=== PATIENT | male | born 1955 | race Caucasian/White ===

== ENCOUNTER 2016-09-30 11:35 | Observation (INO) | payer OTHER ==
[~2016-09-30] VITALS: Ht 185.4 cm; Wt 115.0 kg
[2016-09-30] VITALS (7 sets, daily range): BP systolic 124–188; BP diastolic 66–100; PULSE 68–80; RESP 18–20; TEMP 97.6–97.8; O2SAT 93–99
--- NOTE | 2016-09-30 11:41 | PD ---
Physical Exam Date Seen by Provider: Sep 30, 2016 Time Seen by Provider: 11:40 Narrative 60 yo male here for evaluation of chest pressure. Started today. Nothing makes it better. Took two aspirin and takes pradaxa. history of ACS. Most of the pain is like pressure on the mid chest and headache as well. 8/10. No nitro. Vitals are stable in triage. Awaiting bed placement. Data Data Last Documented VS Vital Signs Date Time Temp Pulse Resp B/P Pulse Ox O2 Delivery O2 Flow Rate FiO2 09/30/16 11:36 97.6 80 20 188/100 98 Room Air [facility] Medical Record Reviewed: Yes Supervised Visit with KHLOE: Wil Wheatley Sep 30, 2016 11:41
--- NOTE | 2016-09-30 12:07 | RADRPT ---
EXAM DATE/TIME: 09/30/2016 11:47 [place] COMPARISON: No previous studies available for comparison. INDICATIONS : Chest pain, short of breath. MEDICAL HISTORY : Chronic obstructive pulmonary disease. SURGICAL HISTORY : None. ENCOUNTER: Initial ACUITY: 1 day PAIN SCORE: 4/10 LOCATION: Bilateral chest FINDINGS: A single view of the chest demonstrates the lungs to be symmetrically aerated without evidence of mas s, infiltrate or effusion. The cardiomediastinal contours are unremarkable. Osseous structures are intact. CONCLUSION: No acute disease. Odell Quiroz MD on September 30, 2016 at 12:05 Board Certified Radiologist. This report was verified electronically.
--- NOTE | 2016-09-30 12:21 | PD ---
HPI Chief Complaint: Chest Pain Time Seen by Provider: 11:46 Travel History International Travel<30 days: No Contact w/Intl Traveler<30days: No Traveled to known affect area: No History of Present Illness HPI Patient 60-year-old male presents to the emergency Department with left-sided chest pressure radiating to his left shoulder and up to his neck. Patient states he's been under a lot of stress recently secondary to the of his mother. He states that he got into an argument with somebody at work today when this pressure started. This happened about 7:00 this morning. He does follow with a low pressure boiler operator Dr. Tinsley out [facility], states that he had a stress test some months ago. States that this pain was quite intense associated with some shortness of breath and some mild nausea. He states it is lessening significantly since being in the emergency department. He took 2 full dose aspirins prior to arrival, has not had a nitroglycerin. He is accompanied by his who is a nurse. PFSH Past Medical History Narrative Medical Anxiety, CAD, COPD, hypercholesterolemia. Cardiovascular Problems: Yes Past Surgical History Narrative Surgical Left hand surgery Social History Alcohol Use: No Tobacco Use: Yes Allergies-Medications (Allergen,Severity, Reaction): Coded Allergies: Codeine (Verified Allergy, Intermediate, headache, 09/30/16) Reported Meds & Prescriptions Reported Meds & Active Scripts Active Reported Aspirin EC (Aspirin) 81 Mg Tabdr 81 Mg PO DAILY Ranexa ER 12 HR (Ranolazine) 500 Mg Tab 250 Mg PO BID Atorvastatin (Atorvastatin Calcium) 20 Mg Tab 20 Mg PO HS Review of Systems Except as stated in HPI: all other systems reviewed are Neg Physical Exam Narrative GENERAL: Well-developed well-nourished, mildly uncomfortable but in no distress per SKIN: Focused skin assessment warm/dry. HEAD: Atraumatic. Normocephalic. EYES: Pupils equal and round. No scleral icterus. No injection or drainage. ENT: No nasal bleeding or discharge. Mucous membranes pink and moist. NECK: Trachea midline. No JVD. CARDIOVASCULAR: Regular rate and rhythm. No murmur appreciated. 2+ bilaterally equal pulses in all 4 extremity's. RESPIRATORY: No accessory muscle use. Clear to auscultation. Breath sounds equal bilaterally. GASTROINTESTINAL: Abdomen soft, non-tender, nondistended. Hepatic and splenic margins not palpable. MUSCULOSKELETAL: No obvious deformities. No clubbing. No cyanosis. No edema. NEUROLOGICAL: Awake and alert. No obvious cranial nerve deficits. Motor grossly within normal limits. Normal speech. PSYCHIATRIC: Appropriate mood and affect; insight and judgment normal. Data Data Last Documented VS Vital Signs Date Time Temp Pulse Resp B/P Pulse Ox O2 Delivery O2 Flow Rate FiO2 09/30/16 12:35 84 20 98 Room Air 09/30/16 12:35 137/73 09/30/16 11:36 97.6 Orders Electrocardiogram (09/30/16 11:46) Ckmb (Isoenzyme) Profile (09/30/16 11:46) Complete Blood Count With Diff (09/30/16 11:46) Comprehensive Metabolic Panel (09/30/16 11:46) Magnesium (Mg) (09/30/16 11:46) Prothrombin Time / Inr (Pt) (09/30/16 11:46) Act Partial Throm Time (Ptt) (09/30/16 11:46) Troponin I (09/30/16 11:46) Chest, Single Ap (09/30/16 11:46) Ecg Monitoring (09/30/16 11:46) Iv Access Insert/Monitor (09/30/16 11:46) Oximetry (09/30/16 11:46) Oxygen Administration (09/30/16 11:46) CKMB (09/30/16 12:58) CKMB% (09/30/16 12:58) Admit Order (Ed Use Only) (09/30/16 ) Labs Laboratory Tests Test 09/30/16 12:58 White Blood Count 7.2 TH/MM3 Red Blood Count 4.59 MIL/MM3 Hemoglobin 13.9 GM/DL Hematocrit 41.5 % Mean Corpuscular Volume 90.4 FL Mean Corpuscular Hemoglobin 30.2 PG Mean Corpuscular Hemoglobin 33.4 % Concent Red Cell Distribution Width 12.4 % Platelet Count 190 TH/MM3 Mean Platelet Volume 8.2 FL Neutrophils (%) (Auto) 60.0 % Lymphocytes (%) (Auto) 30.0 % Monocytes (%) (Auto) 7.5 % Eosinophils (%) (Auto) 2.0 % Basophils (%) (Auto) 0.5 % Neutrophils # (Auto) 4.3 TH/MM3 Lymphocytes # (Auto) 2.2 TH/MM3 Monocytes # (Auto) 0.5 TH/MM3 Eosinophils # (Auto) 0.1 TH/MM3 Basophils # (Auto) 0.0 TH/MM3 CBC Comment DIFF FINAL Differential Comment Prothrombin Time 10.4 SEC Prothromb Time International 0.9 RATIO Ratio Activated Partial 29.6 SEC Thromboplast Time Sodium Level 140 MEQ/L Potassium Level 4.8 MEQ/L Chloride Level 107 MEQ/L Carbon Dioxide Level 27.1 MEQ/L Anion Gap 6 MEQ/L Blood Urea Nitrogen 10 MG/DL Creatinine 0.91 MG/DL Estimat Glomerular Filtration 84 ML/MIN Rate Random Glucose 105 MG/DL Calcium Level 9.2 MG/DL Magnesium Level 2.3 MG/DL Total Bilirubin 0.5 MG/DL Aspartate Amino Transf 26 U/L (AST/SGOT) Alanine Aminotransferase 33 U/L (ALT/SGPT) Alkaline Phosphatase 70 U/L Total Creatine Kinase 112 U/L Creatine Kinase MB 1.3 NG/ML Troponin I LESS THAN 0.02 NG/ML Total Protein 7.5 GM/DL Albumin 3.6 GM/DL MDM Medical Decision Making Medical Screen Exam Complete: Yes Emergency Medical Condition: Yes Differential Diagnosis ACS, AMI, pneumonia, stress, anxiety. Narrative Course Patient roomed emergency department, has a fair description of anginal equivalent with heaviness some mild nausea and shortness of breath. It is relieving with rest. He has had aspirin prior to arrival. Initial workup including EKG and chest x-ray are fairly reassuring however the patient does have a history of right bundle branch block which his confirms. Discussed with the patient follow-up with his low pressure boiler operator versus chest pain center, he states that his next appointment with his low pressure boiler operator is until late November, I have therefore recommended that he stay and chest pain center for troponin trending at a minimum and consideration of stress testing and he is agreeable. Diagnosis Primary Impression: Chest pain Qualified Code: R07.9 - Chest pain, unspecified type Admitting Information Admitting Physician Requests: Observation Condition: Stable Odell Rasmussen MD Sep 30, 2016 12:21 Odell Rasmussen MD Sep 30, 2016 12:21
[2016-09-30] MEDS ORDERED: ATOR20TA15 PO (13:05)
[2016-09-30 13:18] LABS: ALT (GPT) 33 U/L (12-78); ANION GAP 6 MEQ/L (5-15); AST (GOT) 26 U/L (15-37); BICARBONATE 27.1 MEQ/L (21.0-32.0); BLOOD UREA NITROGEN 10 MG/DL (7-18); CHLORIDE 107 MEQ/L (98-107); GLOMERULAR FILTRATION RATE 84 ML/MIN (>89); MAGNESIUM 2.3 MG/DL (1.5-2.5); SODIUM (NA) 140 MEQ/L (136-145)
[2016-09-30 13:20] LABS: POTASSIUM 4.8 MEQ/L (3.5-5.1)
[2016-09-30 13:21] LABS: ALKALINE PHOSPHATASE 70 U/L (45-117); CREATINE KINASE 112 U/L (39-308); TOTAL BILIRUBIN ADULT 0.5 MG/DL (0.2-1.0)
[2016-09-30 13:24] LABS: AUTOMATED NEUTROPHIL # 4.3 TH/MM3 (1.8-7.7); BASOPHIL % 0.5 % (0.0-2.0); EOSINOPHIL # 0.1 TH/MM3 (0-0.4); HEMATOCRIT 41.5 % (39.0-51.0); HEMO FLAGS DIFF FINAL; LYMPHOCYTE # 2.2 TH/MM3 (1.0-4.8); MEAN CELL VOLUME 90.4 FL (80.0-100.0); MEAN CORPUSCULAR HEMOGLOBIN 30.2 PG (27.0-34.0); MEAN CORPUSCULAR HGB CONC 33.4 % (32.0-36.0); MONO % 7.5 % (0.0-8.0); PLATELET COUNT 190 TH/MM3 (150-450); RED BLOOD COUNT 4.59 MIL/MM3 (4.50-5.90); RED CELL DISTRIBUTION WIDTH 12.4 % (11.6-17.2); WHITE BLOOD COUNT 7.2 TH/MM3 (4.0-11.0)
[2016-09-30 13:33] LABS: APTT (PATIENT) 29.6 SEC (24.3-30.1); INTERNATIONAL NORMALIZED RATIO 0.9 RATIO; PROTHROMBIN TIME - PATIENT 10.4 SEC (9.8-11.6)
[2016-09-30 13:34] LABS: CKMB 1.3 NG/ML (0.5-3.6)
[2016-09-30] MEDS ORDERED: NITROGLYCERIN 2% OINT 1 GM PACKET TOPICAL ONE (14:00)
[2016-09-30] MEDS ORDERED: SODIUM CHLORIDE 0.9% FLUSH 5 ML FLUSH IVF PRN (15:00)
[2016-09-30] MEDS ORDERED: ACETAMINOPHEN 500 MG CPLT PO PRN (15:00)
[2016-09-30] MEDS ORDERED: ALPRAZolam 0.25 MG TAB PO PRN (15:00)
[2016-09-30] MEDS ORDERED: ONDANSETRON HCL 4 MG/2 ML VIAL IV PRN (15:00)
--- NOTE | 2016-09-30 15:01 | HHI.HP ---
[facility] Primary Care Physician Mamadou Christian MD Chief Complaint Chest pain History of Present Illness This is a 60-year-old male that presents to ED via private vehicle with his with complaint of developing a central chest pressure after waking this morning around 2:30. He states it was a small area in the center of his chest but continued to expand outward throughout the morning. The discomfort worsened to about 8 out of 10 while he was at the home making preparations for his mother's . He was short of breath nauseous and diaphoretic. He states that he was told by his senior medical transcriptionist Dr. Gandhi that he had a heart blockage via a chemical stress test. He had a stress test in May of this year. He states that he was placed on Ranexa. He also takes atorvastatin and a baby aspirin daily. He states he found nothing really to improve the symptoms but it was worsened when he is getting more stressed at [facility] with the plans of his mother's . Currently discomfort is about a 1 out of 10. It has never resolved. He has declined nitroglycerin sitting that it used to get them very bad headache. He also was on isosorbide in the past which also gave him a bad headache. He states he's never had a cardiac catheterization. Denies recent illnesses. Denies fevers or chills. Review of Systems General: Patient denies fevers, chills recent, and recent travel HEENT: Patient denies headache, sore throat, difficulty swallowing. Cardiovascular: Has the chest discomfort as mentioned above. Denies sensation of heart beating rapidly or irregularly. No syncope. He was diaphoretic. Respiratory: He was short of breath. He states shortness of breath is not unusual for him with his COPD but the breathing seemed to be more apical. Denies inspirational chest discomfort. Denies coughing wheezing or hemoptysis. GI: He was nauseous. Patient denies vomiting, diarrhea, abdominal pain, bloody stools. Musculoskeletal: Patient denies joint pain or edema. Denies calf pain or edema. Neurovascular: Patient denies numbness, tingling, weakness in extremities. Denies headache. Endocrine: Denies polyuria and polydipsia. Hematologic: Denies easy bruising. Skin: Denies rash or itching. Past Family Social History Allergies: Coded Allergies: Codeine (Verified Allergy, Intermediate, headache, 09/30/16) Past Medical History Stated history of CAD but states he's never had a cardiac catheterization. Patient also has history of hyperlipidemia and COPD. Denies hypertension and COPD. Past Surgical History Noncontributory. Denies prior cardiac catheterization. Reported Medications Reported Meds & Active Scripts Active Reported Atorvastatin (Atorvastatin Calcium) 20 Mg Tab 20 Mg PO HS Active Ordered Medications Current Medications Medications (Trade) Dose Ordered Sig/Lyubov Route Start Time Stop Time Status Last Admin (NS Flush) 2 ml UNSCH PRN IVF 09/30/16 15:00 UNV (NS Flush) 2 ml BID IVF 09/30/16 21:00 UNV (Tylenol) 500 mg Q4H PRN PO 09/30/16 15:00 UNV (Zofran Inj) 4 mg Q6H PRN IV 09/30/16 15:00 UNV (Protonix) 40 mg DAILY PO 09/30/16 15:00 UNV (Aspirin) 325 mg DAILY PO 10/01/16 09:00 UNV (Xanax) 0.25 mg Q8H PRN PO 09/30/16 15:00 UNV Family History He states that his mother had CAD and his sister has CAD. Social History Patient chews tobacco. Patient quit smoking cigarettes 3 years ago but prior that he smoked 1-2 packs of cigarettes daily for 35 years. Denies alcohol or illicit drugs. Physical Exam Vital Signs Vital Signs Date Time Temp Pulse Resp B/P Pulse Ox O2 Delivery O2 Flow Rate FiO2 09/30/16 12:35 84 20 98 Room Air 09/30/16 12:35 99 Room Air 09/30/16 12:35 78 18 137/73 99 Room Air 09/30/16 11:36 97.6 80 20 188/100 98 Room Air Physical Exam GENERAL: This is a well-nourished, well-developed patient, in no apparent distress. Patient speaks in clear complete sentences. Patient is pleasant. HEENT: Head is atraumatic and normocephalic. Neck is supple without lymphadenopathy and trachea is midline. No JVD or carotid bruits. CARDIOVASCULAR: Regular rate and rhythm without murmurs, gallops, or rubs. RESPIRATORY: Clear to auscultation. Breath sounds equal bilaterally. No wheezes , rales, or rhonchi. Chest wall is nontender. No use of accessory muscles. GASTROINTESTINAL: Abdomen is nontender, nondistended. Abdomen soft. No obvious pulsatile mass or bruit. No CVA tenderness. Strong femoral pulses bilaterally. Normal bowel sounds in all quadrants. MUSCULOSKELETAL: Patient is moving upper and lower extremities freely. No calf tenderness or edema, no Homans sign. Strong pulses in upper and lower extremities. NEUROLOGICAL: Patient is alert and oriented. Cranial nerves 2-12 are grossly intact. No focal deficits and speech is clear. SKIN: No rash and turgor is normal. Laboratory Laboratory Tests Test 09/30/16 12:58 White Blood Count 7.2 Red Blood Count 4.59 Hemoglobin 13.9 Hematocrit 41.5 Mean Corpuscular Volume 90.4 Mean Corpuscular Hemoglobin 30.2 Mean Corpuscular Hemoglobin 33.4 Concent Red Cell Distribution Width 12.4 Platelet Count 190 Mean Platelet Volume 8.2 Neutrophils (%) (Auto) 60.0 Lymphocytes (%) (Auto) 30.0 Monocytes (%) (Auto) 7.5 Eosinophils (%) (Auto) 2.0 Basophils (%) (Auto) 0.5 Neutrophils # (Auto) 4.3 Lymphocytes # (Auto) 2.2 Monocytes # (Auto) 0.5 Eosinophils # (Auto) 0.1 Basophils # (Auto) 0.0 CBC Comment DIFF FINAL Differential Comment Prothrombin Time 10.4 Prothromb Time International 0.9 Ratio Activated Partial 29.6 Thromboplast Time Sodium Level 140 Potassium Level 4.8 Chloride Level 107 Carbon Dioxide Level 27.1 Anion Gap 6 Blood Urea Nitrogen 10 Creatinine 0.91 Estimat Glomerular Filtration 84 Rate Random Glucose 105 Calcium Level 9.2 Magnesium Level 2.3 Total Bilirubin 0.5 Aspartate Amino Transf 26 (AST/SGOT) Alanine Aminotransferase 33 (ALT/SGPT) Alkaline Phosphatase 70 Total Creatine Kinase 112 Creatine Kinase MB 1.3 Troponin I LESS THAN 0.02 Total Protein 7.5 Albumin 3.6 Result Diagram: 09/30/16 1258 09/30/16 1258 Imaging Last 24 hours Impressions Chest X-Ray 09/30/16 1146 Signed Impressions: Service Date/Time: Friday, September 30, 2016 11:47 - CONCLUSION: No acute disease. Odell Quiroz MD Course EKGs: Initial EKG has a right bundle branch block without significant ST segment depressions or elevations. The patient's had told the ER physician that he has had a right bundle branch block. Assessment and Plan Assessment and Plan * Chest pain: Patient will continue to have serial cardiac enzymes and EKGs for ruling out purposes. He will be seen by Dr. Mynor Hicks of cardiology in the chest pain center. I discussed this patient with his senior medical transcriptionist Dr. Gandhi. He reviewed the records and states that he had a nonischemic chemical stress test May 15, 2016 and that was a low risk study. He states that in the past he has had stress test revealing microvascular disease and is being medically managed. He has requested that the patient have his Ranexa increased to 500 mg twice a day and to discharge him after he rules out with instructions to follow-up with him in his office. * Hyperlipidemia: Continue current medication. * COPD: Patient will have when necessary DuoNeb's. * Tobacco abuse: Patient has been counseled on importance of no longer using tobacco products. Patient is stable at this time. He is agreeable to this plan. Jackson Molina Sep 30, 2016 15:01
[2016-09-30] MEDS ORDERED: ASPI81TA11 PO (15:09)
[2016-09-30] MEDS ORDERED: RANO500 PO (15:09)
[2016-09-30] MEDS ORDERED: MORPHINE SULFATE 4 MG/ML INJ IV PUSH PRN (15:15)
[2016-09-30] MEDS: PANTOPRAZOLE SOD 40 MG DELAYED RELEASE TAB PO SCH (15:27)
[2016-09-30 17:12] LABS: CREATINE KINASE 67 U/L (39-308)
[2016-09-30 19:34] LABS: CREATINE KINASE 72 U/L (39-308)
[2016-09-30] MEDS: SODIUM CHLORIDE 0.9% FLUSH 5 ML FLUSH IVF SCH (21:00)
[2016-09-30] MEDS ORDERED: ATORVASTATIN 20 MG TAB PO SCH (21:00)
[2016-09-30] MEDS: RANOLAZINE 500 MG EXTENDED RELEASE TAB PO SCH (21:05)
[2016-10-01] VITALS: BP 109/64; PULSE 70; RESP 20; TEMP 97.7; O2SAT 96
[2016-10-01 00:05] VITALS: PULSE 64
[2016-10-01 04:00] VITALS: BP 116/70; PULSE 70; RESP 20; TEMP 97.6; O2SAT 96
[2016-10-01 04:15] VITALS: PULSE 65
[2016-10-01] MEDS ORDERED: RANO500 PO (07:23)
--- NOTE | 2016-10-01 07:23 | HHI.DCPOC ---
Discharge Care Plan Diagnosis: (1) Atypical chest pain (2) Hx of coronary artery disease (3) Tobacco abuse Goals to Promote Your Health * To prevent worsening of your condition and complications * To maintain your health at the optimal level Directions to Meet Your Goals Take your medications as prescribed Follow your dietary instruction Follow activity as directed Keep your appointments as scheduled Take your immunizations and boosters as scheduled If your symptoms worsen call your PCP, if no PCP go to Urgent Care Center or Emergency Room Smoking is Dangerous to Your Health. Avoid second hand smoke Call the 24-hour hour crisis hotline for domestic abuse at Leatha Cramer Oct 01, 2016 07:23
[2016-10-01] MEDS: RANOLAZINE 500 MG EXTENDED RELEASE TAB PO SCH (07:39)
[2016-10-01] MEDS: PANTOPRAZOLE SOD 40 MG DELAYED RELEASE TAB PO SCH (07:39)
[2016-10-01] MEDS: SODIUM CHLORIDE 0.9% FLUSH 5 ML FLUSH IVF SCH (07:40)
[2016-10-01 08:00] VITALS: PULSE 96
[2016-10-01 08:03] VITALS: BP 126/79; PULSE 68; RESP 16; TEMP 97.7; O2SAT 95
[2016-10-01] MEDS ORDERED: ASPIRIN 325 MG TAB PO SCH (09:00)
--- NOTE | 2016-10-02 09:36 | EKG ---
Date Performed: 09/30/2016 Time Performed: 18:57:37 PTAGE: 60 years EKG: Sinus rhythm PATTERN CONSISTENT WITH PULMONARY DISEASE RIGHT BUNDLE BRANCH BLOCK LEFT ANTERIOR FASCICULAR BLOCK A BNORMAL ECG PREVIOUS TRACING : 09/30/2016 16.12 Since previous tracing, no significant change noted DOCTOR: Mynor Hicks Interpretating Date/Time 10/02/2016 09:34:35
--- NOTE | 2016-10-02 09:36 | EKG ---
Date Performed: 09/30/2016 Time Performed: 16:12:48 PTAGE: 60 years EKG: Sinus rhythm INDETERMINATE AXIS RIGHT BUNDLE BRANCH BLOCK ABNORMAL ECG PREVIOUS TRACING : 09/30/2016 11.55 Since previous tracing, no significant change noted DOCTOR: Mynor Hicks Interpretating Date/Time 10/02/2016 09:34:51
--- NOTE | 2016-10-02 09:37 | EKG ---
Date Performed: 09/30/2016 Time Performed: 11:55:58 PTAGE: 60 years EKG: Sinus rhythm MARKED RIGHT AXIS DEVIATION RIGHT BUNDLE BRANCH BLOCK ABNORMAL ECG NO PREVIOUS TRACING DOCTOR: Mynor Hicks Interpretating Date/Time 10/02/2016 09:34:56
== END 2016-10-01 10:14 | disposition home or self-care (01) ==
LOC: NEPE 11:35 → NEDA 13:50 → NEPHCDU 15:43
PROVIDERS: ADMIT Internal Medicine Cardiovascular Disease; ATTEND Internal Medicine Cardiovascular Disease
DX: R07.89 Other chest pain (principal); E78.5 Hyperlipidemia, unspecified; J44.9 Chronic obstructive pulmonary disease, unspecified; R06.02 Shortness of breath; R11.0 Nausea; R51 Headache; I44.4 Left anterior fascicular block; R94.31 Abnormal electrocardiogram [ECG] [EKG]; R61 Generalized hyperhidrosis; I45.10 Unspecified right bundle-branch block; I25.10 Atherosclerotic heart disease of native coronary artery without angina pectoris; E78.00 Pure hypercholesterolemia, unspecified; F41.9 Anxiety disorder, unspecified; F17.220 Nicotine dependence, chewing tobacco, uncomplicated; Z79.899 Other long term (current) drug therapy
CPT/HCPCS: 71010; 80053; 82550; 82552; 83735; 84484; 85025; 85610; 85730; 93005; 99285; G0378